=== PATIENT | female | born 1990 | race American Indian/Alaskan Native ===

== ENCOUNTER 2021-02-18 06:14 | Emergency (ER) | payer OTHER, MEDICAID ==
[2021-02-18 07:26] VITALS: BP 136/92
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
== END 2021-02-18 09:50 | disposition home or self-care (01) ==
LOC: ED 06:14
DX: M54.2 Cervicalgia (principal); M25.511 Pain in right shoulder; J45.909 Unspecified asthma, uncomplicated; Z79.899 Other long term (current) drug therapy; V87.7XXA Person injured in collision between other specified motor vehicles (traffic), initial encounter; Y93.89 Activity, other specified; Y92.488 Other paved roadways as the place of occurrence of the external cause; Y99.8 Other external cause status
CPT/HCPCS: 72040; 99283